=== PATIENT | male | born 1985 | race Caucasian/White ===

== ENCOUNTER 2024-12-10 14:00 | Emergency (ER) | payer OTHER ==
[~2024-12-10] VITALS: Ht 182.9 cm; Wt 114.4 kg
[~2024-12-10 14:00] MED LIST: ANTIDEPRESSANT; NORCO 5-325 TA1 EACH PO; SERTRALINE HCL100 MG PO
[2024-12-10] MEDS ORDERED: DIPHTH,PERTUSS(ACELL),TET VAC 0.5 ML SYRINGE IM ONE (14:45)
[2024-12-10] MEDS ORDERED: LIDOCAINE/RACEPINEP/TETRACAINE 3 ML SYR TOP ONE (14:45)
[2024-12-10 18:37] VITALS: BP 145/91
== END 2024-12-10 18:38 | disposition home or self-care (01) ==
LOC: ED 14:00
DX: S01.01XA Laceration without foreign body of scalp, initial encounter (principal); Z23 Encounter for immunization; Z79.899 Other long term (current) drug therapy; W20.8XXA Other cause of strike by thrown, projected or falling object, initial encounter; Y99.0 Civilian activity done for income or pay
CPT/HCPCS: 12001; 70450; 90471; 90715; 99283-25